=== PATIENT | female | born 1970 | race Caucasian/White ===

== ENCOUNTER → 2017-02-15 | Outpatient (CLI) | payer OTHER ==
--- NOTE | 2017-02-15 07:06 | MR ---
EXAMINATION TYPE: MR cervical spine wo con DATE OF EXAM ORDERED: 02/15/2017 6:35 AM HISTORY: M5.2 Cervicalgia. TECHNOLOGIST HISTORY AT TIME OF EXAM: Cervicalgia COMPARISON: None. TECHNIQUE: Multiplanar, multiecho imaging of the cervical spine was obtained without contrast on a 1 .5 yesenia magnet. FINDINGS: Prevertebral soft tissues are normal. Vertebral body height and alignment are maintained. Atlantoaxial relationships are normal. There is a normal craniocervical junction. Cord signal is normal. At C2-C3, no abnormality is seen. At C3-C4, there is mild disc space loss. There is a diffuse disc displacement. There is mild, bilater al intervertebral foraminal narrowing. At C4-C5, the intervertebral foramina are well maintained. There is a diffuse disc displacement. The facet and uncovertebral joints are unremarkable. At C5-C6, the intervertebral foramina are well maintained. There is a mild, diffuse disc displacement . The facet and uncovertebral joints are unremarkable At C6-7 and C7-T1, no definite abnormality is seen. IMPRESSION: 1. NO SIGNIFICANT COMPRESSIVE DISCOPATHY OR NEURAL COMPRESSION. 2. MILD DEGENERATIVE DISC DISEASE DESCRIBED.
== END | disposition home or self-care (01) ==
LOC: RADMRIMAIN 06:01
PROVIDERS: ATTEND Psychiatry & Neurology Neurology
DX: M50.31 Other cervical disc degeneration, high cervical region (principal)
CPT/HCPCS: 72141

== ENCOUNTER → 2020-04-27 | Outpatient (CLI) | payer OTHER ==
--- NOTE | 2020-04-28 12:08 | MM ---
Reason for exam: screening (asymptomatic). Last mammogram was performed 3 years and 9 months ago. Physical Findings: A clinical breast exam by your physician is recommended on an annual basis and results should be correlated with mammographic findings. MG Screening Mammo w CAD Bilateral CC and MLO view(s) were taken. Prior study comparison: July 25, 2016, bilateral MG screening mammo w CAD. July 24, 2015, bilateral MG screening mammo w CAD. There are scattered fibroglandular densities. There is no discrete abnormality. No significant changes when compared with prior studies. ASSESSMENT: Negative, BI-RAD 1 RECOMMENDATION: Routine screening mammogram of both breasts in 1 year.
== END | disposition home or self-care (01) ==
LOC: RADMAMWWP 14:43
PROVIDERS: ATTEND Family Medicine
DX: Z12.31 Encounter for screening mammogram for malignant neoplasm of breast (principal)
CPT/HCPCS: 77067

== ENCOUNTER → 2020-05-15 | Outpatient (CLI) | payer OTHER ==
--- NOTE | 2020-05-15 15:30 | US ---
EXAMINATION TYPE: US pelvic complete DATE OF EXAM: 05/15/2020 COMPARISON: US dated 04/27/2015 CLINICAL HISTORY: R10.2 PELVIC PAIN. History of ovarian cysts TECHNIQUE: Transabdominal (TA). Date of LMP: 05/04/2020 EXAM MEASUREMENTS: Uterus: 10.7 x 5.1 x 5.7 cm Endometrial Stripe: 1.2 cm Right Ovary: 3.2 x 2.9 x 2.9 cm Left Ovary: 3.2 x 3.0 x 3.9 cm 1. Uterus: Anteverted Anterior fibroid measures 2.2 x 1.9 x 2.7 cm 2. Endometrium: wnl 3. Right Ovary: wnl 4. Left Ovary: cyst measures 2.3 x 2.1 x 2.7 cm 5. Bilateral Adnexa: wnl 6. Posterior cul-de-sac: no free fluid IMPRESSION: Fibroid uterus. The large cyst seen on previous exam associated with the left ovary is no longer seen, there is a smaller cyst as described.
== END | disposition home or self-care (01) ==
LOC: RADUSWWP 14:46
PROVIDERS: ATTEND Family Medicine
DX: D25.9 Leiomyoma of uterus, unspecified (principal); N83.209 Unspecified ovarian cyst, unspecified side
CPT/HCPCS: 76856

== ENCOUNTER → 2021-06-18 | Outpatient (CLI) | payer OTHER ==
--- NOTE | 2021-06-22 08:25 | MM ---
Reason for exam: screening (asymptomatic). Last mammogram was performed 1 year and 2 months ago. Physical Findings: A clinical breast exam by your physician is recommended on an annual basis and results should be correlated with mammographic findings. MG Screening Mammo w CAD Bilateral CC and MLO view(s) were taken. Prior study comparison: April 27, 2020, bilateral MG screening mammo w CAD. July 25, 2016, bilateral MG screening mammo w CAD. There are scattered fibroglandular densities. Asymmetric breast tissue greater in the left breast. No significant changes when compared with prior studies. ASSESSMENT: Benign, BI-RAD 2 RECOMMENDATION: Routine screening mammogram of both breasts in 1 year.
== END | disposition home or self-care (01) ==
LOC: RADMAMWWP 15:39
PROVIDERS: ATTEND Family Medicine
DX: Z12.31 Encounter for screening mammogram for malignant neoplasm of breast (principal)
CPT/HCPCS: 77067

== ENCOUNTER 2024-07-01 12:33 | Day surgery (SDC) | payer OTHER ==
[2024-07-01] MEDS ORDERED: LACTATED RINGERS 1,000 ML BAG ONE (13:45)
[2024-07-01] MEDS ORDERED: PROPOFOL 10 MG/ML 20 ML VIAL IV ONE (14:09)
[2024-07-01] MEDS ORDERED: LIDOCAINE 1% INJ 10MG/ML (20 ML MDV) ONE (14:09)
--- NOTE | 2024-07-05 15:56 | OP ---
OPERATIVE REPORT DATE OF SERVICE : 07/01/2024 PROCEDURE: Esophagogastroduodenoscopy. PREOPERATIVE DIAGNOSIS: GERD. POSTOPERATIVE DIAGNOSIS: Esophagitis. ANESTHESIA: MAC. DESCRIPTION OF PROCEDURE: The patient was placed on the endoscopy table in the lateral position. She received IV sedation. The gastroscope was placed in oropharynx, passed into on esophagus into the stomach. Scope was then placed through the pylorus. The first and second portion of duodenum appeared normal. The scope was then brought back to the antrum. This appeared minimally inflamed. There was no biopsy performed. The scope was then retroflexed. Remainder of stomach appeared normal. There was no significant hiatal hernia. The GE junction was at 40 cm. The distal esophagus appeared mildly inflamed. A biopsy was performed. The proximal esophagus appeared normal. The scope was withdrawn from the patient. MMODL / IJN: [id number] /
== END 2024-07-01 15:30 ==
LOC: ORWHC2ENDO 12:33
PROVIDERS: ATTEND Surgery
DX: K21.00 Gastro-esophageal reflux disease with esophagitis, without bleeding
CPT/HCPCS: 43239; 81025; 88305

== ENCOUNTER → 2024-10-04 | Outpatient (CLI) | payer OTHER ==
--- NOTE | 2024-10-04 09:05 | FL ---
EXAMINATION TYPE: FL UGI w esophagus w KUB DATE OF EXAM: 10/04/2024 8:50 AM COMPARISON: None CLINICAL INDICATION:Female, 54 years old with history of K21.9 GASTRO-ESOPHAGEAL REFLUX DISEASE; TECHNIQUE: The procedure was explained and patient history elicited. All patient questions were ans wered prior to start of procedure. A display associate radiograph of the abdomen was also reviewed. Multiple flu oroscopic spot images of the esophagus, stomach and duodenum were obtained following ingestion of liq uid barium and EZ-gas crystals. Fluoroscopic time:1.52 min Fluoroscopic images:0 Radiographs taken: 172 DAP: Not Reported [id number] FINDINGS: Upper GI examination: The display associate abdominal radiograph demonstrates a normal bowel gas pattern without dilated loops of small or large bowel. There is no evidence for organomegaly or pneumoperitoneum. No abnormal calcificat ions. The visualized osseous structures are intact. The esophagus appears unremarkable without evidence of focal stricture, ulceration or abnormal outpou renetta. No hiatal hernia was visualized. No evidence of gastroesophageal reflux was seen when the p atient was instructed to bear down. The stomach and duodenum demonstrate a normal course and contour. There is no evidence of focal gastric or duodenal ulceration, stricture, or abnormal outpouching. Note is made of premature spilling prior to the patient swallowing. IMPRESSION: 1. Normal upper gastrointestinal examination. 2. Note is made of premature spilling prior to the patient swallowing. Speech evaluation may be of b enefit. [facility], , 10/04/2024 9:03 AM
== END | disposition home or self-care (01) ==
LOC: RADFLMAIN 08:02
PROVIDERS: ATTEND Surgery
DX: K21.9 Gastro-esophageal reflux disease without esophagitis (principal)
CPT/HCPCS: 74240